=== PATIENT | male | born 1980 | race African-American/Black ===

== ENCOUNTER 2023-05-21 16:06 | Emergency (ER) | payer SELFPAY ==
[2023-05-21 16:09] VITALS: BP 150/103
[2023-05-21] MEDS: MOTRIN 600 MG PO (18:48)
[2023-05-21 18:49] VITALS: BP 144/76
--- NOTE | 2023-05-21 23:37 | ED.GENMED ---
History of Present Illness
General
Chief Complaint: Visual Problem
Source: patient
Exam Limitations: none
Time Seen by Provider: 05/21/23 18:12
Nursing documentation reviewed up to this point in time: agreed with
Travel History
Have you had any contact with someone who has COVID-19?: No
Do you have any symptoms of coronavirus? Fever > 100 degrees, chills, cough, shortness of breath, sore throat, loss of taste or smell, muscle aches, or headache?: No
History of Present Illness
History of Present Illness:
Patient state hit hit his head on a steel beam 2 days ago while at work. Complains of headache and blurred vision since. Brought to ED by family for eval.
Past History
Past History
ED Past Medical History: None
ED Past Surgical History: None
Review of Systems
Review of Systems
Allergies reviewed?: Yes
All Other Systems: ROS reviewed and negative except as documented in HPI and ROS
Constitutional: Reports no symptoms
EENT: Reports other (intermittent blurred vision)
Respiratory: Reports no symptoms
Cardiac: Reports no symptoms
ABD/GI: Reports no symptoms
: Reports no symptoms
Musculoskeletal: Reports no symptoms
Skin: Reports no symptoms
Neurological: Reports headache
Psychiatric: Reports no symptoms
Phy Exam
General Physical Exam
General Presentation: well appearing and no apparent distress
General age: appears stated age
General Skin: warm and dry
General Habitus: normal
General Mental: alert
ENT Exam
ENT Exam: EOMI and TM's normal
Eye Exam
Eye Exam: PERRL, EOMI, conjunctiva normal and globe normal
Neurological Exam
Neurological Exam: alert, oriented x3, CN II-XII intact, no motor deficits, no sensory deficits, speech normal and normal gait
Musculoskeletal Exam
Musculoskeletal Exam: full ROM and neuro vasc intact
Skin Exam
Skin Exam: normal color, warm/dry and no rash
Psychiatric Exam
Psychiatric Exam: normal mood/affect
Course
Orders/Labs/Results
Orders:
Orders
05/21/23 16:[address] [CT Head W/o Iv Contrast] Urgent
Comment:
Reason For Exam: head injury with vision changes
05/21/23 18:38
Ibuprofen [Motrin] 600 mg PO NOW STA
Vital Signs
Initial and Last Documented VS:
Initial Vital Signs
Pulse Resp BP Pulse Ox
107 18 150/103 96
05/21/23 16:09 05/21/23 16:09 05/21/23 16:09 05/21/23 16:09
Last Documented Vital Signs
Temp Pulse Resp BP Pulse Ox
98.0 F 95 18 144/76 98
05/21/23 18:49 05/21/23 18:49 05/21/23 18:49 05/21/23 18:49 05/21/23 18:49
*Radiology
Radiology exam reviewed: radiology read reviewed
*Pulse Oximetry
Patient hypoxic: no
*Critical Care Note
Total Time (30-74mins, 75-104mins- exclusive of procedures): Not Applicable
ED Attending Note
-
Portions of this chart may have been created with voice recognition software.� Occasional wrong word or��sound alike� substitutions may have occurred due to the inherent limitations of voice recognition software.
Discharge Plan
Departure
Patient Disposition: Home (Routine Discharge)
Date of Disposition: 05/21/23
Time of Disposition: 18:39
Patient with high blood pressure during this ER visit?: No
Condition: Good
Covid-19: Not Applicable
Discharge Problem:
Head injury
Instructions: Concussion, Adult (DC), Head Injury in Adults (DC), Contusion (DC)
Referrals:
UNKNOWN - PT DOES,NOT KNOW [Family Provider] -
Stand Alone Forms: Return to Work
Activity Restrictions/Additional Instructions:
Followup with your workman's comp provider in the AM
Interventions
Interventions:
*Risk Screen - Suicide Last Done: 05/21/23 16:11
*General Assessment Last Done: 05/21/23 16:11
*Neglect/Abuse Screening Last Done: 05/21/23 16:11
*Nursing Disposition Last Done: 05/21/23 18:50
ED-EENT Assessment Last Done: 05/21/23 18:44
ED- Neurological Assessment Last Done: 05/21/23 18:44
ED-Skin Assessment Last Done: 05/21/23 18:44
ED Swallowing Screen Last Done: 05/21/23 18:44
Discharge Date and Time
Discharge Date/Time: 05/21/23 18:51
== END 2023-05-21 18:51 | disposition home or self-care (01) ==
LOC: EMR 16:06
PROVIDERS: EMERGENCY PHYSICIAN Emergency Medicine
DX: S09.90XA Unspecified injury of head, initial encounter (principal); W22.8XXA Striking against or struck by other objects, initial encounter; Y99.0 Civilian activity done for income or pay
CPT/HCPCS: 99284; 70450